=== PATIENT | male | born 1975 | race Two or more races ===

== ENCOUNTER 2019-04-22 21:25 | Emergency (ER) | payer SELFPAY ==
[~2019-04-22] VITALS: Ht 177.8 cm; Wt 80.7 kg
[2019-04-22 22:31] LABS: BASO # 0.1 x10^3/uL (0.0-0.2); BASO % 1 % (0-3); EOS # 0.2 x10^3/uL (0.0-0.7); EOS % 2 % (0-3); HEMATOCRIT 40.1 % (39.0-53.0); HEMOGLOBIN 12.6 g/dL (13.0-17.5); LYMPH # 3.2 x10^3/uL (1.0-4.8); LYMPH % 38 % (24-48); MEAN CORPUSCULAR HEMOGLOBIN 20 pg (25-35); MEAN CORPUSCULAR HGB CONC 32 g/dL (31-37); MEAN CORPUSCULAR VOLUME 63 fL (79-100); MONO # 0.8 x10^3/uL (0.0-1.1); MONO % 10 % (0-9); NEUT # 4.2 x10^3/uL (1.8-7.7); NEUT % 49 % (31-73); PLATELET COUNT 250 x10^3/uL (140-400); RED BLOOD COUNT 6.34 x10^6/uL (4.30-5.70); RED CELL DISTRIBUTION WIDTH 16.4 % (11.5-14.5); WHITE BLOOD COUNT 8.5 x10^3/uL (4.0-11.0)
[2019-04-22 22:41] LABS: GFR 81.9; POTASSIUM 3.6 mmol/L (3.5-5.1)
[2019-04-22] MEDS ORDERED: CONTRAST GIVEN. MC PRN (22:45)
[2019-04-22 22:47] LABS: ALBUMIN 4.2 g/dL (3.4-5.0); ALBUMIN/GLOBULIN RATIO 1.1 (1.0-1.7); TOTAL BILIRUBIN 0.5 mg/dL (0.2-1.0); TOTAL PROTEIN 8.2 g/dL (6.4-8.2)
[2019-04-22 22:51] LABS: ANISOCYTOSIS SLIGHT; HYPOCHROMIA MARKED; MICROCYTOSIS MARKED; PLT ESTIMATE ADEQUATE (ADEQUATE); POLYCHROMASIA SLIGHT
[2019-04-22 22:52] LABS: POIKILOCYTOSIS SLIGHT
[2019-04-22] MEDS: IOHEXOL 300 MG/ML 100ML VIAL. IV ONE (23:10)
--- NOTE | 2019-04-22 23:34 | RAD ---
Examination: CT chest with IV contrast HISTORY: History of palpable mass on the sternum COMPARISON: None available TECHNIQUE: Axial CT images of the chest were performed with IV contrast. Coronal and sagittal reformats are performed Exposure: One or more of the following individualized dose reduction techniques were utilized for this examination: 1. Automated exposure control 2. Adjustment of the mA and/or kV according to patient size 3. Use of iterative reconstruction technique FINDINGS: The visualized thyroid gland grossly appears unremarkable. The central airways are patent. The caliber of the aorta grossly appears unremarkable. Mild bibasilar lung airspace opacities likely atelectasis. At the site of marker placement in the right sternal region, no definite evidence of mass or lesion is evident. Bilateral costochondral calcifications identified. The liver, spleen, adrenals grossly appears unremarkable. Mild degenerative changes thoracic spine IMPRESSION: 1.At the site of marker placement in the right sternal region, no definite evidence of mass or lesion is evident. 2. Mild bibasilar lung atelectasis. Electronically signed by: Eyal Marley MD (04/22/2019 11:31 PM) [email or web address]
--- NOTE | 2019-04-23 00:58 | PHYS DOC ---
Past Medical History Past Medical History: No Pertinent History Past Surgical History: Appendectomy, Other Additional Past Surgical Histo: lumbar surgury Alcohol Use: None Drug Use: None Adult General Chief Complaint Chief Complaint: CHEST PAIN HPI HPI 43yo male presents to the ER with complaints of chest pain center of his chest with a knot. Patient states started yesterday, he was seen at PCP with chest xray obtained. Patient states throughout the day he noticed a knot in the center area of his chest. Patient states pain does not move . At times when the pain is severe he get nausea. Patient has no PMH, no FH. Patient denies sweats or weight loss. Nothing makes pain worse, nothing makes pain better. Review of Systems Review of Systems Constitutional: Denies fever or chills [] Respiratory: Denies cough or shortness of breath [] Cardiovascular: No additional information not addressed in HPI [] GI: Denies abdominal pain, vomiting, bloody stools or diarrhea [] Musculoskeletal: Denies back pain or joint pain [] Integument: knot on center aspect of chest about the size of half dollar Neurologic: Denies headache, focal weakness or sensory changes [] All other systems were reviewed and found to be within normal limits, except as documented in this note. Current Medications Current Medications Current Medications Medications (Trade) Dose Ordered Sig/Michael Start Time Stop Time Status Last Admin Dose Admin Info (CONTRAST GIVEN -- Rx MONITORING) 1 each PRN DAILY PRN 04/22/19 22:45 04/23/19 01:39 DC Iohexol (Omnipaque 300 Mg/ml) 75 ml 1X ONCE 04/22/19 23:00 04/22/19 23:01 DC 04/22/19 23:10 75 ML Ketorolac Tromethamine (Toradol 30mg Vial) 30 mg 1X ONCE 04/23/19 01:30 04/23/19 01:31 DC 04/23/19 01:22 30 MG Allergies Allergies Allergies Coded Allergies Type Severity Reaction Last Updated Verified No Known Drug Allergies 04/22/19 No Physical Exam Physical Exam Constitutional: Well developed, well nourished, no acute distress, non-toxic appearance. [] HENT: Normocephalic, atraumatic, bilateral external ears normal, oropharynx moist, no oral exudates, nose normal. [] Eyes: PERRLA, EOMI, conjunctiva normal, no discharge. [] Neck: Normal range of motion, no tenderness, supple, no stridor. [] Cardiovascular:Heart rate regular rhythm, no murmur [] Lungs & Thorax: Bilateral breath sounds clear to auscultation, not about the size of half dollar in center aspect of chest, nonfluctuant, no redness appreciated [] Abdomen: Bowel sounds normal, soft, no tenderness, no masses, no pulsatile masses. [] Skin: Warm, dry, no erythema, no rash. [] Back: No tenderness, no CVA tenderness. [] Extremities: No tenderness, no edema. [] Neurologic: Alert and oriented X 3, no focal deficits noted. [] Psychologic: Affect normal, judgement normal, mood normal. [] Current Patient Data Vital Signs Vital Signs Date Time Temp Pulse Resp B/P (MAP) Pulse Ox O2 Delivery O2 Flow Rate FiO2 04/23/19 01:25 56 107/67 (80) 98 Room Air 04/22/19 21:30 98.0 20 98.0 Lab Values Laboratory Tests Test 04/22/19 21:45 White Blood Count 8.5 x10^3/uL (4.0-11.0) Red Blood Count 6.34 x10^6/uL (4.30-5.70) H Hemoglobin 12.6 g/dL (13.0-17.5) L Hematocrit 40.1 % (39.0-53.0) Mean Corpuscular Volume 63 fL (79-100) L Mean Corpuscular Hemoglobin 20 pg (25-35) L Mean Corpuscular Hemoglobin Concent 32 g/dL (31-37) Red Cell Distribution Width 16.4 % (11.5-14.5) H Platelet Count 250 x10^3/uL (140-400) Neutrophils (%) (Auto) 49 % (31-73) Lymphocytes (%) (Auto) 38 % (24-48) Monocytes (%) (Auto) 10 % (0-9) H Eosinophils (%) (Auto) 2 % (0-3) Basophils (%) (Auto) 1 % (0-3) Neutrophils # (Auto) 4.2 x10^3/uL (1.8-7.7) Lymphocytes # (Auto) 3.2 x10^3/uL (1.0-4.8) Monocytes # (Auto) 0.8 x10^3/uL (0.0-1.1) Eosinophils # (Auto) 0.2 x10^3/uL (0.0-0.7) Basophils # (Auto) 0.1 x10^3/uL (0.0-0.2) Platelet Estimate Adequate (ADEQUATE) Polychromasia Slight Hypochromasia Marked Poikilocytosis Slight Anisocytosis Slight Microcytosis Marked Sodium Level 141 mmol/L (136-145) Potassium Level 3.6 mmol/L (3.5-5.1) Chloride Level 101 mmol/L (98-107) Carbon Dioxide Level 32 mmol/L (21-32) Anion Gap 8 (6-14) Blood Urea Nitrogen 14 mg/dL (8-26) Creatinine 1.0 mg/dL (0.7-1.3) Estimated GFR (Cockcroft-Gault) 81.9 BUN/Creatinine Ratio 14 (6-20) Glucose Level 106 mg/dL (70-99) H Calcium Level 9.0 mg/dL (8.5-10.1) Total Bilirubin 0.5 mg/dL (0.2-1.0) Aspartate Amino Transferase (AST) 16 U/L (15-37) Alanine Aminotransferase (ALT) 13 U/L (16-63) L Alkaline Phosphatase 42 U/L (46-116) L Troponin I Quantitative < 0.017 ng/mL (0.000-0.055) Total Protein 8.2 g/dL (6.4-8.2) Albumin 4.2 g/dL (3.4-5.0) Albumin/Globulin Ratio 1.1 (1.0-1.7) Laboratory Tests 04/22/19 21:45 Laboratory Tests 04/22/19 21:45 EKG EKG EKG reviewed, no stemi, nml axis, NSR, interpretation time [id number][] Radiology/Procedures Radiology/Procedures [facility] [address] [place] [address] IMAGING REPORT Signed PATIENT: DARIN WATERSUNT: [id number] : 1975 LOCATION: ER AGE: 43 SEX: M EXAM STATUS: REG ER ORD. PHYSICIAN: LISSY ANDREA MD REASON: mass on sternum, nonfluctuant, palpable PROCEDURE: CT CHEST W/CONTRAST Examination: CT chest with IV contrast HISTORY: History of palpable mass on the sternum COMPARISON: None available TECHNIQUE: Axial CT images of the chest were performed with IV contrast. Coronal and sagittal reformats are performed Exposure: One or more of the following individualized dose reduction techniques were utilized for this examination: 1. Automated exposure control 2. Adjustment of the mA and/or kV according to patient size 3. Use of iterative reconstruction technique FINDINGS: The visualized thyroid gland grossly appears unremarkable. The central airways are patent. The caliber of the aorta grossly appears unremarkable. Mild bibasilar lung airspace opacities likely atelectasis. At the site of marker placement in the right sternal region, no definite evidence of mass or lesion is evident. Bilateral costochondral calcifications identified. The liver, spleen, adrenals grossly appears unremarkable. Mild degenerative changes thoracic spine IMPRESSION: 1.At the site of marker placement in the right sternal region, no definite evidence of mass or lesion is evident. 2. Mild bibasilar lung atelectasis. Electronically signed by: Eyal Marley MD (04/22/2019 11:31 PM) [facility] [] Course & Med Decision Making Course & Med Decision Making Pertinent Labs and Imaging studies reviewed. (See chart for details) []43yo male presents to the ER with complaints of chest pain center of his chest with a knot. Patient states started yesterday, he was seen at PCP with chest xray obtained. Patient states throughout the day he noticed a knot in the center area of his chest. Patient states pain does not move . At times when the pain is severe he get nausea. Patient has no PMH, no FH. Patient denies sweats or weight loss. Nothing makes pain worse, nothing makes pain better. Labs/Imaging obtained and reviewed No evidence of acute process identified on CT Labs unremarkable Discussed follow up and return precautions Dragon Disclaimer Dragon Disclaimer This electronic medical record was generated, in whole or in part, using a voice recognition dictation system. Departure Departure Impression: Primary Impression: Chest wall pain Disposition: HOME, SELF-CARE Condition: STABLE Referrals: NO PCP (PCP) Patient Instructions: Chest Wall Pain, [id number] Additional Instructions: Recommend follow up with PCP 3 - 5 days Return to the ER with worsening symptoms, intractable pain, fever, altered ment al status Tylenol as needed for pain Take medications as prescribed Scripts Diclofenac Potassium (DICLOFENAC POTASSIUM) 50 Mg Tablet 1 TAB PO PRN TID for 5 Days, #30 TAB Prov: LISSY ANDREA MD 04/23/19 LISSY ANDREA MD Apr 23, 2019 00:58
[2019-04-23] MEDS ORDERED: DICL50TA2 PO (01:10)
[2019-04-23] MEDS: KETOROLAC 30 MG/ML VIAL. IVP ONE (01:22)
[2019-04-23 01:25] VITALS: BP 107/67
== END 2019-04-23 01:34 | disposition home or self-care (01) ==
LOC: ER 21:25
DX: R07.89 Other chest pain (principal)
CPT/HCPCS: 36415; 71260; 80053; 84484; 85025; 96374; 99285; J1885; Q9967